=== PATIENT | male | born 1925 | race Caucasian/White ===

== ENCOUNTER → 2017-01-04 | Outpatient (CLI) | payer BC ==
--- NOTE | 2017-01-04 12:21 | DIAGNOSTIC IMAGING REPORT ---
MRI LUMBAR SPINE W/O CONTRAST CLINICAL HISTORY: Back pain with bilateral leg radiculopathy left greater than right TECHNIQUE: Sagittal and axial T1, T2 and STIR images were obtained. The patient was imaged under 0.7 [employer]ot[employer] open MRI scanner COMPARISON STUDY: Conventional radiographic study performed in 2008 OBSERVATIONS: There are old T12 and L1 compression fractures L1-2: No disc protrusions or extrusions. No evidence of spinal canal or neural foraminal compromise. L2-3: There is a circumferential disc bulge present. There is mild spinal stenosis. There is mild bilateral foraminal narrowing L3-4: There is a circumferential disc bulge and small left paracentral disc protrusion. There is mild to moderate spinal canal narrowing. There is mild bilateral foraminal narrowing L4-5: There is a circumferential disc bulge present. There is mild spinal stenosis. There is bilateral foraminal narrowing. L5-S1: There is a mild circumferential disc bulge present. There is no significant spinal stenosis. There is bilateral foraminal narrowing. The conus medullaris and cauda equina appear normal. IMPRESSION: 1. 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 2. Old T12 and L1 compression deformities Electronically signed by: Kt Alvarez M.D. 01/04/2017 12:19 PM Dictated Date/Time: 01/04/2017 12:14 PM
== END | disposition home or self-care (01) ==
LOC: C.OPENMRI 09:39
PROVIDERS: ATTEND Family Medicine
DX: M54.42 Lumbago with sciatica, left side (principal); M21.40 Flat foot [pes planus] (acquired), unspecified foot